=== PATIENT | female | born 1945 | race Hispanic/Latino ===

== ENCOUNTER → 2020-04-04 | Outpatient (CLI) | payer MEDICARE, OTHER ==
[~2020-04-04] MED LIST: ATENOLOL-CHLOR1 EAC1 PO; CHLORTHALIDONE25 MG PO; HYDROCODONE-CH473 ML PO; LEVOTHROID112 MCG PO; NEURONTIN300 MG PO; ZITHROMAX250 MG PO
== END ==
LOC: US 06:44
PROVIDERS: ATTEND Family Medicine
DX: R10.32 Left lower quadrant pain (principal)
CPT/HCPCS: 76700; 76856